=== PATIENT | male | born 2005 | race Two or more races ===

== ENCOUNTER 2024-07-04 20:41 | Emergency (ER) | payer SELFPAY ==
[~2024-07-04] VITALS: Ht 170.2 cm; Wt 72.0 kg
[2024-07-04] MEDS ORDERED: levETIRAcetam 1000 mg/100ml 100 ML IV ONE (21:15)
--- NOTE | 2024-07-04 21:44 | ED.PDOC ---
HPI (NEURO) HPI Comments 18 year old male presents to the ED with a chief complaint of seizures onset today. Patient states he experienced a seizure today, does take daily medication but does not recall the name. Patient also states he currently has no complaints. PMHx of seizures. Denies headache, dizziness, blurry vision, chest pain, shortness of breath, nausea, vomiting, diarrhea. No other symptoms or modifying factors present at this time. Chief Complaint: Seizure Time Seen by MD: 21:34 Reviewed Notes: Medications, Allergies Information Source: Patient, Emergency Med Personnel Mode of Arrival: Ambulatory Severity: Moderate Timing: Hours Duration: Since onset Prehospital treatment: None Seizure Quality: Single Episodes Seizure Location: Generalized Onset: At rest Circumstances: Spontaneous Symptoms: None After: Normal Mentation Modifying factors: Nothing Past Medical History PAST MEDICAL HISTORY: Seizures Surgical History: Denies all surgeries Family History Family History: Reviewed,noncontributory to illness, No family hx of Cancer, No family hx of DM, No family hx of Heart nadiya, No family hx of HTN, No family hx ofKidney nadiya, No family hx of Liver nadiya, No family hx of Lung nadiya, No family hx of Stroke Social History Smoker: Non-Smoker Alcohol: Denies ETOH Use Drugs: Denies Drug Use Lives In: Home Constitutional: denies: chills, diaphoresis, fatigue, fever, malaise, sweats, weakness, others EENTM: denies: blurred vision, double vision, ear bleeding, ear discharge, ear drainage, ear pain, ear ringing, eye pain, eye redness, hearing loss, mouth pain, mouth swelling, nasal discharge, nose bleeding, nose congestion, nose pain, photophobia, tearing, throat pain, throat swelling, voice changes, others Respiratory: denies: cough, hemoptysis, orthopnea, SOB at rest, shortness of breath, SOB with excertion, stridor, wheezing, others Cardiovascular: denies: chest pain, dizzy spells, diaphoresis, Dyspnea on exertion, edema, irregular heart beat, left arm pain, lightheadedness, palpitations, PND, syncope, others Gastrointestinal: denies: abdomen distended, abdominal pain, blood streaked bowels, constipated, diarrhea, dysphagia, difficulty swallowing, hematemesis, melena, nausea, poor appetite, poor fluid intake, rectal bleeding, rectal pain, vomiting, others Genitourinary: denies: burning, dysuria, flank pain, frequency, hematuria, incontinence, penile discharge, penile sore, pain, testicle pain, testicle swelling, urgency, others Neurological: reports: seizure; denies: dizziness, fainting, headache, left sided numbness, left sided weakness, numbness, paresthesia, pre-existing deficit, right sided numbness, right sided weakness, speech problems, tingling, tremors, weakness, others Musculoskeletal: denies: back pain, gout, joint pain, joint swelling, muscle pain, muscle stiffness, neck pain, others Integumetry: denies: bruises, change in color, change in hair/nails, dryness, laceration, lesions, lumps, rash, wounds, others Allergic/Immunocompromised: denies: Difficulty Healing, Frequent Infections, Hives, Itching, others Hematologic/Lymphatic: denies: anemia, blood clots, easy bleeding, easy bruising, swollen glands, others Endocrine: denies: excessive hunger, excessive sweating, excessive thirst, excessive urination, flushing, intolerance to cold, intolerance to heat, unexplained weight gain, unexplained weight loss, others Psychiatric: denies: anxiety, bipolar disorder, depression, hopeless, panic disorder, schizophrenia, sleepless, suicidal, others All Other Systems: Reviewed and Negative Physical Exam General Appearance: No Apparent Distress, Normal HEENT: Normal ENT Inspection, Pharynx Normal, TMs Normal Neck: Full Range of Motion, Non-Tender, Normal, Normal Inspection Respiratory: Chest Non-Tender, Lungs Clear, No Accessory Muscle Use, No Respiratory Distress, Normal Breath Sounds Cardiovascular: No Edema, No JVD, No Murmur, No Gallop, Normal Peripheral Pulses, Regular Rate/Rhythm Breast Exam: Deferred Gastrointestinal: No Organomegaly, Non Tender, No Pulsatile Mass, Normal Bowel Sounds, Soft Genitalia: Deferred Pelvic: Deferred Rectal: Deferred Extremities: No calf tenderness, Normal capillary refill, Normal inspection, Normal range of motion, Non-tender, No pedal edema Musculoskeletal : Apperance: Normal Neurologic: Alert, layer up II-XII nml as Tested, No Motor Deficits, Normal Affect, Normal Mood, No Sensory Deficits Cerebellar Function: Normal Reflexes: Normal Skin: Dry, Normal Color, Warm Lymphatic: No Adenopathy Was a procedure done? Was a procedure done?: No Differential Diagnosis (SZ) Seizure: Epilepsy-Break Through CVA: Hypoglycemia General Weakness: N/A Headache: N/A X-Ray, Labs, Meds, VS Vital Signs Date Time Temp Pulse Resp B/P (MAP) Pulse Ox O2 Delivery O2 Flow Rate FiO2 07/04/24 20:43 95 07/04/24 20:41 98.3 103 16 113/77 (89) 98 Current Medications Medications (Trade) Dose Ordered Sig/Tien Route Start Time Stop Time Status Last Admin Levetiracetam (Keppra Tablet) 1,000 mg ONCE ONCE PO 07/04/24 21:45 07/04/24 21:46 DC 07/04/24 21:55 Time of 1ST Reevaluation: 22:04 Reevaluation 1ST: Unchanged Patient Education/Counseling: Diagnosis, Treatment, Prognosis Family Education/Counseling: No Family Present Departure 1 Departure Time of Disposition: 22:07 (Patient was epilepsy and known breakthrough seizures. Patient is back at baseline and would like to go home. We will discharge patient home with outpatient follow up) Impression: Primary Impression: Breakthrough seizure Disposition: 01 HOME / SELF CARE / HOMELESS Condition: Stable Additional Instructions: You had a breakthrough seizure today. It is important to take your seizure medication. You should stay well rested and well hydrated. You should follow up with your regular doctor within 1 week. If your symptoms worsen or you have any other concerns then please return to the emergency room. Discharged With: Self Critical Care Note Critical Care Time?: No Stability Stability form required: No I personally scribed for LEONORA PALOMO MD ([email or web address]) on 07/04/24 at 21:44. Electronically submitted by Lois Waddell ([email or web address]). LEONORA PALOMO MD Jul 04, 2024 21:44
[2024-07-04] MEDS: levETIRAcetam 500 MG TAB PO ONE (21:55)
[2024-07-04 22:35] VITALS: BP 113/86; PULSE 86; RESP 18; TEMP 98.3; O2SAT 98
== END 2024-07-04 22:25 | disposition home or self-care (01) ==
LOC: EDBD 20:41 → ER 20:41
DX: G40.909 Epilepsy, unspecified, not intractable, without status epilepticus (principal)